=== PATIENT | female | born 1980 | race Caucasian/White ===

== ENCOUNTER 2017-10-31 10:00 | Outpatient (RCR) | payer MEDICAID, SELFPAY | END 2017-11-09 23:59 | LOC: NS 10:00 | PROVIDERS: Family Provider Family Medicine; PCP Family Medicine; Visit Provider Family Medicine | DX: E66.9 Obesity, unspecified (principal); I10 Essential (primary) hypertension; Z68.32 Body mass index [BMI] 32.0-32.9, adult; Z71.3 Dietary counseling and surveillance | CPT/HCPCS: 97802; 97803 ==

== ENCOUNTER 2017-11-14 10:06 | Outpatient (RCR) | payer MEDICAID, SELFPAY ==
[2017-10-06 08:42] VITALS: BP 147/108; BMI 33.0
== END 2017-12-07 23:59 ==
LOC: NS 10:06
PROVIDERS: Family Provider Family Medicine; PCP Family Medicine; Visit Provider Family Medicine
DX: I10 Essential (primary) hypertension (principal); E66.9 Obesity, unspecified; Z68.32 Body mass index [BMI] 32.0-32.9, adult; Z71.3 Dietary counseling and surveillance
CPT/HCPCS: 97803

== ENCOUNTER 2017-12-09 01:05 | Emergency (ER) | payer MEDICAID, SELFPAY ==
[2017-12-09 01:08] VITALS: BP 171/127; PULSE 92; RESP 18; TEMP 36.6; O2SAT 100; BMI 34.2
[2017-12-09] MEDS: LORazepam 1 MG Tablet PO (01:24)
[2017-12-09] MEDS: Metoclopramide 10 MG Tablet PO (02:38)
[2017-12-09] MEDS: Naproxen 500 MG Tablet PO (02:38)
[2017-12-09] MEDS: DiphenhydrAMINE 25 MG Capsule 50 MG PO (02:38)
[2017-12-09 04:16] VITALS: RESP 16
--- NOTE | 2017-12-09 04:39 | ED.DCSUM_ITS ---
- ER Visit Summary Date of Service: 12/09/17 Chief Complaint: Anxiety History of Present Illness: The patient is a 37 F reports increased stress with relationship problems. Tonight she feels that she is having a panic attack. She also feels that her blood pressure is elevated and she has a headache. She does take HCTZ for blood pressure. Patient states that she had been on Xanax and Prozac in the past for anxiety. She is no longer taking medication or seeing a psychiatrist. She has a friend here with her who has been a good support system for her. Physical Examination: Blood pressure is 171/127, temperature 97.8, heart rate 92 , respiratory rate 18, pulse ox 100% on room air. Patient sitting upright in bed. She appears anxious but she is in no acute distress. Head neck examination is unremarkable. Heart is regular rate and rhythm. No lung sounds are clear. Abdomen soft nontender. Neuro exam is unremarkable with no deficits. Psychiatric examination does reveal that she is anxious. She states she does not want to hurt herself but needs to talk to someone. Test Results: [] Emergency Department Course and Treatment: Patient was initially given 1 mg of p.o. Ativan followed by Naprosyn, Benadryl, and Reglan for headache. On repeat evaluation she is sleeping comfortably and easily awakens. Her headache is improved. Her blood pressure has slowly been improving and her systolic blood pressures in the 150s on my last check. Patricia from the counseling center has presented and is spoken with the patient. At this time plan will be for the patient to follow-up at the counseling center later today. She is to monitor her blood pressures. She states her pressures normally 120/80. She will be given a home pack of Ativan but no further prescriptions as she will require close follow-up. Treatment Plan: [] Disposition: Discharge Impression: 1. Anxiety 2. Hypertension This note was generated with [employer] software. It may contain incorrect words, spelling, and punctuation that were not noted in review of the chart prior to signing ED Disposition - Plan for ED Patient: Chief Complaint: Anxiety Referrals: Wilberto Ferris MD [Primary Care Provider] -
--- NOTE | 2017-12-09 04:41 | DCINST.ED_ITS ---
ED Disposition - Plan for ED Patient: Disposition: Home or Assisted Living Chief Complaint: Anxiety Instructions: ED Panic Attack, ED HTN Established Referrals: Wilberto Ferris MD [Primary Care Provider] - 5-7 Days Counseling,Center [GROUP OF PHYSICIANS] - 1 Day Additional Instructions: Follow-up at the Counseling Center today as discussed with Patricia. Follow- up with Dr Ferris over the next 5-7 days for blood pressure check.
[2017-12-09] MEDS: LORazepam 0.5 MG Tablet PO (04:50)
[2017-12-09 04:54] VITALS: BP 166/78; PULSE 79; RESP 18; O2SAT 96
--- NOTE | 2017-12-09 04:55 | ED.RN ---
4 ATIVAN TAB SENT WITH PT PER ORDER.
== END 2017-12-09 04:57 | disposition home or self-care (01) ==
PROVIDERS: Emergency Provider Emergency Medicine; Family Provider Family Medicine; PCP Family Medicine
DX: F41.9 Anxiety disorder, unspecified (principal); I10 Essential (primary) hypertension; Z87.442 Personal history of urinary calculi; Z79.899 Other long term (current) drug therapy; Z72.0 Tobacco use
CPT/HCPCS: 99283

== ENCOUNTER 2017-12-27 17:06 | Outpatient (RCR) | payer MEDICAID, SELFPAY | END 2018-01-07 23:59 | LOC: NS 17:06 | PROVIDERS: Family Provider Family Medicine; PCP Family Medicine; Visit Provider Family Medicine | DX: E66.9 Obesity, unspecified (principal); I10 Essential (primary) hypertension; Z68.32 Body mass index [BMI] 32.0-32.9, adult; Z71.3 Dietary counseling and surveillance | CPT/HCPCS: 97803 ==

== ENCOUNTER 2018-01-10 17:26 | Outpatient (RCR) | payer MEDICAID, SELFPAY | END 2018-02-06 23:59 | LOC: NS 17:26 | PROVIDERS: Family Provider Family Medicine; PCP Family Medicine; Visit Provider Family Medicine | DX: E66.9 Obesity, unspecified (principal); I10 Essential (primary) hypertension; Z68.32 Body mass index [BMI] 32.0-32.9, adult; Z71.3 Dietary counseling and surveillance | CPT/HCPCS: 97803 ==

== ENCOUNTER → 2018-01-17 05:46 | Outpatient (CLI) | payer MEDICAID, SELFPAY | PROVIDERS: Family Provider Family Medicine; PCP Family Medicine; Visit Provider Obstetrics & Gynecology | DX: Z01.818 Encounter for other preprocedural examination (principal) ==

== ENCOUNTER 2018-02-27 14:00 | Outpatient (RCR) | payer MEDICAID, SELFPAY | END 2018-03-09 23:59 | LOC: NS 14:00 | PROVIDERS: Family Provider Family Medicine; PCP Family Medicine; Visit Provider Family Medicine | DX: E66.9 Obesity, unspecified (principal); I10 Essential (primary) hypertension; Z68.32 Body mass index [BMI] 32.0-32.9, adult; Z71.3 Dietary counseling and surveillance | CPT/HCPCS: 97803 ==

== ENCOUNTER 2018-03-20 13:59 | Outpatient (RCR) | payer MEDICAID, SELFPAY ==
--- NOTE | 2018-03-20 13:59 | DT_ITS ---
This patient was seen during an EMR downtime March 13, 2018 - March 20, 2018. This patient may have a combination of paper and electronic documentation or all paper documentation. All documentation is viewable within the e-chart portion of [employer] for each patient visit.
== END 2018-04-03 23:59 ==
LOC: NS 13:59
PROVIDERS: Family Provider Family Medicine; PCP Family Medicine; Visit Provider Family Medicine
DX: E66.9 Obesity, unspecified (principal); I10 Essential (primary) hypertension; Z68.32 Body mass index [BMI] 32.0-32.9, adult; Z71.3 Dietary counseling and surveillance
CPT/HCPCS: 97803

== ENCOUNTER 2018-04-06 15:56 | Emergency (ER) | payer MEDICAID, SELFPAY ==
[2018-04-06 15:57] VITALS: BP 139/105; PULSE 100; RESP 18; TEMP 36.9; O2SAT 100; BMI 29.6
--- NOTE | 2018-04-06 16:23 | ED.VISSUMM ---
- ER Visit Summary Date of Service: 04/06/18 Chief Complaint: Tailbone pain History of Present Illness: The patient is a 37 F who had a fall down steps 1 week ago. She was seen at [facility]. Patient states she was called after she left the clinic stating that she had a fractured or dislocated her tailbone. She has been taking Tylenol and ibuprofen on the clock. She went back to work today and now has increased pain with the increased activity. Patient states she is scheduled to see a chiropractor at 7 PM this evening. She has no pain radiating to her legs. She denies difficulty with bowel movement or any blood in her stool. Physical Examination: Vital signs are unremarkable. Patient's lying in bed no acute distress. Hips are turned to the left to unload from her tailbone. Heart is regular rate and rhythm. lung sounds are clear. Abdomen is soft and nontender. Back examination reveals tenderness to palpation of the lower sacrum and coccyx. No overlying skin changes are noted. Test Results: [] Emergency Department Course and Treatment: Patient had imaging done through [facility] and had been told that we could see the images here. I explained to her that we cannot see images, only the written report. She is very reluctant to have repeat x-rays done due to the radiation. I did explain to her that I can get repeat x-rays however I am not sure that it will greatly change our management. If she is a dislocated tailbone that is been out of place for a week she is likely to have a lot of muscle spasm and will not be easy reduction. After discussion of options with her we will treat her with a short course of Percocet and Naprosyn. She will follow with her chiropractor kenneth. If not improved she will follow with orthopedics and I will give her a referral for that. Treatment Plan: [] Disposition: Discharge Impression: Coccyx fracture This note was generated with [employer] dictation software. It may contain incorrect words, spelling, and punctuation that were not noted in review of the chart prior to signing ED Disposition - Plan for ED Patient: Chief Complaint: Other, Pain/Inj Referrals: Wilberto Ferris MD [Primary Care Provider] -
--- NOTE | 2018-04-06 16:26 | ED.DEP ---
ED Disposition - Plan for ED Patient: Disposition: Home or Assisted Living Chief Complaint: Other, Pain/Inj Instructions: ED Fx Coccyx Prescriptions: Oxycodone HCl/Acetaminophen [Percocet 5/325] 1 tablet PO Q6H PRN PRN 3 Days #12 tablet PRN Reason: Pain Naproxen [Naprosyn] 500 mg PO BID PRN #20 tab Referrals: Wilberto Ferris MD [Primary Care Provider] - Jovanni Smith DO [STAFF PHYSICIAN] - As Needed
[2018-04-06 16:34] VITALS: PULSE 72; RESP 18
== END 2018-04-06 16:35 | disposition home or self-care (01) ==
PROVIDERS: Emergency Provider Emergency Medicine; Family Provider Family Medicine; PCP Family Medicine
DX: S32.2XXA Fracture of coccyx, initial encounter for closed fracture (principal); W10.9XXA Fall (on) (from) unspecified stairs and steps, initial encounter; Y93.9 Activity, unspecified; Y92.9 Unspecified place or not applicable; I10 Essential (primary) hypertension; F41.9 Anxiety disorder, unspecified; Z87.442 Personal history of urinary calculi; Z79.899 Other long term (current) drug therapy; Z72.0 Tobacco use
CPT/HCPCS: 99282